=== PATIENT | male | born 1955 | race Two or more races ===

== ENCOUNTER 2018-04-24 07:52 | Day surgery (SDC) | payer BC ==
[2018-04-21 16:02] VITALS: BMI 24.7
[2018-04-24] MEDS ORDERED: LIDOCAINE HCL/PF 2% SDV 5ML VIAL ONE (12:30)
[2018-04-24] MEDS ORDERED: MIDAZOLAM HCL 2 MG/2 ML SINGLE DOSE VIAL ONE (12:31)
[2018-04-24] MEDS ORDERED: KETOROLAC TROMETHAMINE 30 MG/1 ML VIAL ONE (13:05)
[2018-04-24] MEDS ORDERED: ONDANSETRON 4 MG/2 ML VIAL IVPUSH PRN (13:20)
[2018-04-24] MEDS ORDERED: oxyCODONE HCL 5 MG TABLET PO PRN (13:20)
[2018-04-24] MEDS ORDERED: LACTATED RINGERS SOLUTION 1,000 ML IV SCH (13:30)
--- NOTE | 2018-04-24 13:35 | OP ---
Operative Note - Note: Operative Date: 04/24/18 Pre-Operative Diagnosis: stress incontinence Operation: cystoscopy and transurethral injection of collagen Post-Operative Diagnosis: Same as Pre-op Surgeon: Darwin Bella Anesthesia: General
[2018-04-24 14:10] VITALS: BP 113/77; PULSE 73; TEMP 97.8
--- NOTE | 2018-04-25 06:56 | OP ---
DATE OF OPERATION: 04/24/2018 PREOPERATIVE DIAGNOSIS: Stress urinary incontinence. POSTOPERATIVE DIAGNOSIS: Stress urinary incontinence. PROCEDURE: Cystoscopy, transurethral injection of collagen. ATTENDING: Darwin Flores MD ANESTHESIA: General. OPERATION FOLLOWS: The patient has a history of prostate cancer and is status post a robotic radical prostatectomy. The patient subsequently developed stress urinary incontinence postoperatively. The patient at this times accepts all risks and benefits for transurethral injection of collagen for incontinence. The patient was brought in the operating room, placed in supine position on the operating room table. Anesthesia was administered as was preoperative antibiotics. At this point, the patient was placed in the dorsal lithotomy position and prepped and draped in the usual sterile manner. Cystoscopy was performed, and the bladder neck was noted to be without evidence of stricture or contracture. There was no evidence of stones or neoplasm within the bladder. At this point, 2 mL of collagen were injected submucosally at the level of the external sphincter. Excellent coaptation of the urethra was noted. The instrument at this point was withdrawn from the patient, and the patient was awakened. No complications were noted. DISPOSITION: Patient to the recovery room. Ca [id number]
== END 2018-04-24 14:20 | disposition home or self-care (01) ==
LOC: JASU-SURG 07:52
PROVIDERS: ATTEND Urology
PROC: 0TVC8ZZ Restriction of Bladder Neck, Via Natural or Artificial Opening Endoscopic (ICD-10-PCS; principal; 2018-04-24 10:00)
DX: N39.3 Stress incontinence (female) (male) (principal); Z85.46 Personal history of malignant neoplasm of prostate; I10 Essential (primary) hypertension; E11.9 Type 2 diabetes mellitus without complications; Z79.84 Long term (current) use of oral hypoglycemic drugs
CPT/HCPCS: 51715; L8603; 82962; 94760

== ENCOUNTER 2018-08-16 08:56 | Emergency (ER) | payer BC ==
[2018-08-16 09:02] VITALS: BP 112/69; PULSE 95; TEMP 97.8; BMI 24.3
[2018-08-16 10:15] LABS: BASO % 0.4 % (0-2.0); EOS % 6.3 % (0-4.5); HEMOGLOBIN 14.5 GM/dL (11.7-16.9); LYMPH % 21.9 % (8-40); MCH 27.8 pg (25.7-33.7); MCHC 33.7 g/dl (32.0-35.9); MEAN CELL VOLUME 82.6 fl (80-96); MEAN PLT VOLUME 7.8 fl (7.5-11.1); MONO % 10.3 % (3.8-10.2); NEUT % 61.1 % (42.8-82.8); PLATELET COUNT 316 K/MM3 (134-434); RDW 14.4 % (11.9-15.9); WHITE BLOOD COUNT 7.5 K/mm3 (4.0-10.0)
--- NOTE | 2018-08-16 10:40 | PDOC ---
History of Present Illness - General Chief Complaint: Pain, Acute Stated Complaint: ABDOMINAL PAIN Time Seen by Provider: 08/16/18 09:20 History Source: Patient - History of Present Illness Timing/Duration: reports: constant Past History - Past Medical History Allergies/Adverse Reactions: Allergies Allergy/AdvReac Type Severity Reaction Status Date / Time No Known Allergies Allergy Verified 04/21/18 16:28 Home Medications: Ambulatory Orders Atorvastatin Ca [Lipitor] 20 mg PO HS 04/21/18 Insulin Detemir [Levemir Flextouch] 25 units SCJ HS 04/21/18 Quinapril HCl 20 mg PO DAILY 04/21/18 Dapagliflozin/Metformin HCl [Xigduo Xr 5 mg-1,000 mg Tablet] 1 each PO DAILY Insulin Lispro [Humalog] 0 unit SQ PRN 08/16/18 Anemia: No Asthma: No Cancer: No Cardiac Disorders: No CVA: No COPD: No CHF: No Dementia: No Diabetes: Yes GI Disorders: No Disorders: No HTN: No Hypercholesterolemia: No Liver Disease: No Seizures: No Thyroid Disease: No - Surgical History Abdominal Surgery: No Appendectomy: No Cardiac Surgery: No Cholecystectomy: No Lung Surgery: No Neurologic Surgery: No Orthopedic Surgery: No - Immunization History Immunization Up to Date: No - Suicide/Smoking/Psychosocial Hx Smoking History: Never smoked Have you smoked in the past 12 months: No Number of Cigarettes Smoked Daily: 20 Information on smoking cessation initiated: No 'Breaking Loose' booklet given: 04/24/18 Hx Alcohol Use: No Drug/Substance Use Hx: No Substance Use Type: Alcohol Hx Substance Use Treatment: No Review of Systems - Review of Systems Constitutional: No: Chills, Fever ABD/GI: Yes: Constipated, Abdominal cramping. No: Blood Streaked Bowels, Diarrhea, Nausea, Rectal Bleeding, Vomiting, Tarry Stools : No: Burning, Dysuria, Flank Pain, Hematuria *Physical Exam - Vital Signs Last Vital Signs Temp Pulse Resp BP Pulse Ox 97.8 F 95 H 16 112/69 97 08/16/18 08:59 08/16/18 08:59 08/16/18 08:59 08/16/18 08:59 08/16/18 08:59 - Physical Exam General Appearance: Yes: Appropriately Dressed. No: Apparent Distress HEENT: positive: Normal Voice Neck: positive: Supple Respiratory/Chest: negative: Respiratory Distress Gastrointestinal/Abdominal: positive: Normal Bowel Sounds, Soft. negative: Tender, Distended, Guarding, Rebound Musculoskeletal: negative: CVA Tenderness Integumentary: positive: Dry, Warm Neurologic: positive: Fully Oriented, Alert, Normal Mood/Affect ED Treatment Course - LABORATORY CBC & Chemistry Diagram: 08/16/18 09:59 08/16/18 09:59 - ADDITIONAL ORDERS Additional order review: 08/16/18 09:59 RBC 5.20 MCV 82.6 MCHC 33.7 RDW 14.4 MPV 7.8 Neutrophils % 61.1 Lymphocytes % 21.9 Monocytes % 10.3 H Eosinophils % 6.3 H Basophils % 0.4 - RADIOLOGY Radiology Studies Ordered: Category Date Time Status ABDOMEN & PELVIS CT WITH CONTR [CT] Stat CT Scan 08/16/18 09:[address] WITH CONTRAST [CT] Stat CT Scan 08/16/18 09:28 Ordered Medical Decision Making - Medical Decision Making 08/16/18 10:39 62-year-old male, history of DM, prostate cancer, s/p surgery 4 years ago, here with diffuse abdominal pain with constipation x several days. Has not moved his bowel in 5 days prior to taking stool softener yesterday and has since had a large BM per patient. Also reports anorexia w/ a 10 pound weight loss over past several weeks. No BRBPR, melena, n/v/f/c. States he does not remember if he has even been scoped but has referral for procedure in near future. Sent in by Dr Espinal, PMD, for CT r/o malignancy as recent CEA elevated See exam Abd weight w/ constipation and weight loss w/ elevated CEA Stable and well morales here -labs -CT chest/abd/pelvis -dispo pending 08/16/18 13:30 Labs unremarkable. Patient declines waiting for CT report as states he has a flight to [facility]. I called Dr. Espinal and informed M.D. of patient's wish to leave prior to completion of w/u. Per shayne RIZZO to discharge pt w/ MD to f/ u on CT results 08/16/18 14:31 *DC/Admit/Observation/Transfer Diagnosis at time of Disposition: Weight loss Abdominal pain Qualifiers: Abdominal location: unspecified location Qualified Code(s): R10.9 - Unspecified abdominal pain Constipation Qualifiers: Constipation type: unspecified constipation type Qualified Code(s): K59.00 - Constipation, unspecified - Discharge Dispostion Disposition: HOME Condition at time of disposition: Stable - Referrals Referrals: Windy Espinal MD [Primary Care Provider] - - Patient Instructions Additional Instructions: The cause of your symptoms are unclear as your CT scan report has not been read We spoke to Dr Espinal regarding your desire to leave prior to CT report and was told by your doctor that we can send you home and that he will follow up with you with your results Please return to ED as needed - Post Discharge Activity
[2018-08-16 10:54] LABS: ALBUMIN 3.8 g/dl (3.4-5.0); BILIRUBIN,TOTAL 0.3 mg/dL (0.2-1); BLOOD UREA NITROGEN 22.1 mg/dL (7-18); CALCIUM 9.3 mg/dL (8.5-10.1); CREATININE 1.1 mg/dL (0.55-1.3); TOT PROT 7.9 g/dl (6.4-8.2)
[2018-08-16 10:59] LABS: URINE APPEARANCE CLEAR; URINE BILIRUBIN NEGATIVE (NEGATIVE); URINE COLOR YELLOW; URINE GLUCOSE (UA) 2+ (NEGATIVE); URINE KETONE NEGATIVE (NEGATIVE); URINE LEUK ESTERASE NEGATIVE (NEGATIVE); URINE NITRITE NEGATIVE (NEGATIVE); URINE PROTEIN NEGATIVE (NEGATIVE); URINE UROBILINOGEN 0.2 mg/dL (0.2-1.0)
[2018-08-16 11:01] LABS: POTASSIUM 4.6 mmol/L (3.5-5.1)
--- NOTE | 2018-08-19 08:14 | PDOC ---
*Physical Exam - Vital Signs Last Vital Signs Temp Pulse Resp BP Pulse Ox 97.8 F 95 H 16 112/69 97 08/16/18 08:59 08/16/18 08:59 08/16/18 08:59 08/16/18 08:59 08/16/18 08:59 ED Treatment Course - LABORATORY CBC & Chemistry Diagram: 08/16/18 09:59 08/16/18 09:59 - ADDITIONAL ORDERS Additional order review: 08/16/18 09:59 RBC 5.20 MCV 82.6 MCHC 33.7 RDW 14.4 MPV 7.8 Neutrophils % 61.1 Lymphocytes % 21.9 Monocytes % 10.3 H Eosinophils % 6.3 H Basophils % 0.4 Medical Decision Making - Medical Decision Making 08/19/18 08:15 62 M with abdominal pain. CT shows multiple lung nodules, possible pancreatic mass. Concerning for malignancy. Pt had requested to leave prior to CT results. CT results communicated to Dr. Espinal, pt's PMD, who will f/u with pt regarding further work up for malignancy. Pt was HD stable and well appearing at time of DC. *DC/Admit/Observation/Transfer Diagnosis at time of Disposition: Weight loss Abdominal pain Qualifiers: Abdominal location: unspecified location Qualified Code(s): R10.9 - Unspecified abdominal pain Constipation Qualifiers: Constipation type: unspecified constipation type Qualified Code(s): K59.00 - Constipation, unspecified - Discharge Dispostion Disposition: HOME Condition at time of disposition: Stable - Referrals Referrals: Windy Espinal MD [Primary Care Provider] - - Patient Instructions Additional Instructions: The cause of your symptoms are unclear as your CT scan report has not been read We spoke to Dr Espinal regarding your desire to leave prior to CT report and was told by your doctor that we can send you home and that he will follow up with you with your results Please return to ED as needed - Post Discharge Activity - Attestations Physician Attestion: 08/19/18 08:16 I, Dr. Dudley Guajardo MD, attest that this document has been prepared under my direction and personally reviewed by me in its entirety. I further attest, that it accurately reflects all work, treatment, procedures and medical decision -making performed by me.
== END 2018-08-16 13:33 | disposition home or self-care (01) ==
LOC: JER 08:56
DX: R10.9 Unspecified abdominal pain (principal); K59.00 Constipation, unspecified; R63.4 Abnormal weight loss; E11.9 Type 2 diabetes mellitus without complications; Z85.46 Personal history of malignant neoplasm of prostate
CPT/HCPCS: 36415; 71260-TC; 74177-TC; 80053; 81003; 83690; 85025; 99282-25